=== PATIENT | female | born 1980 | race Caucasian/White ===

== ENCOUNTER 2020-10-02 15:08 | Emergency (ER) | payer OTHER ==
[~2020-10-02 15:08] MED LIST: CELEBREX PO
[2020-10-02 18:02] LABS: BASOPHIL 0.7 % (0-2); EOSINOPHIL 1.8 % (0-5); HCT 48.5 % (37.0-47.0); HGB 15.5 g/dl (12.5-16.0); LYMPHOCYTE 27.6 % (15-48); MCH 31.3 pg (25.0-31.0); MCV 97.8 fL (78.0-100.0); MONOCYTE 5.1 % (0-12); MPV 10.5 fL (6.0-9.5); NEUTROPHIL 64.5 % (41-80); NRBC 0; PLT 262 K/uL (150-400); RBC 4.96 M/uL (4.20-5.40); RDW 12.9 % (11.5-14.0); WBC 7.6 K/uL (4.0-10.5)
[2020-10-02 18:14] LABS: BUN/CREAT RATIO (CALC) 5.2 RATIO; CREATININE 0.77 mg/dL (0.51-0.95); POTASSIUM 3.8 mmol/L (3.5-5.1)
== END 2020-10-02 19:19 | disposition home or self-care (01) ==
LOC: FER 15:08
PROVIDERS: Nurse Practitioner Family
DX: F41.9 Anxiety disorder, unspecified (principal); R29.810 Facial weakness; F17.210 Nicotine dependence, cigarettes, uncomplicated
CPT/HCPCS: 36415; 70450; 80048; 85025; J2060; J7030

== ENCOUNTER 2021-08-12 12:59 | Emergency (ER) | payer MEDICAID ==
[2021-08-12 15:27] LABS: BILIRUBIN NEGATIVE (NEGATIVE); BLOOD NEGATIVE Ery/uL (NEGATIVE); CLARITY CLEAR (CLEAR); COLOR YELLOW (YELLOW); GLUCOSE (U) NORMAL (NORMAL); LEUKOCYTES NEGATIVE Leu/uL (NEGATIVE); NITRITE NEGATIVE (NEGATIVE); PROTEIN NEGATIVE (NEGATIVE); UROBILINOGEN 0.2 mg/dL (0.2-1.0)
== END 2021-08-12 18:44 | disposition home or self-care (01) ==
LOC: FER 12:59
PROVIDERS: Emergency Medicine
DX: B37.49 Other urogenital candidiasis (principal); M54.50 Low back pain, unspecified; J45.909 Unspecified asthma, uncomplicated; F17.210 Nicotine dependence, cigarettes, uncomplicated
CPT/HCPCS: 81003; 99284; J1100; J1885